=== PATIENT | male | born 1980 | race Caucasian/White ===

== ENCOUNTER → 2020-11-07 | Emergency (ER) | payer OTHER ==
[~2020-11-07] VITALS: Ht 185.4 cm; Wt 95.4 kg
[2020-11-07 22:24] VITALS: BP 143/101
--- NOTE | 2020-11-07 22:32 | NUR ---
Pt [facility] 16, accompanied by [employer] officer
== END ==
LOC: ER 22:23
DX: Z00.8 Encounter for other general examination (principal)
CPT/HCPCS: 99283